=== PATIENT | male | born 1990 | race Hispanic/Latino ===

== ENCOUNTER 2021-06-08 22:07 | Emergency (ER) | payer SELFPAY ==
[~2021-06-08] VITALS: Ht 172.7 cm; Wt 122.5 kg
[2021-06-09] MEDS ORDERED: IBUPROFEN 400 MG TAB ONE (00:44)
[2021-06-09] MEDS ORDERED: AZITHROMYCIN 500MG/NS 250 ML 250 ML IV ONE (01:00)
[2021-06-09] MEDS ORDERED: DEXAMETHASONE SOD PHOS 10 MG/1 ML VIAL IV ONE (01:00)
[2021-06-09] MEDS ORDERED: ALBUTEROL SULFATE HFA 8GM INHALATION AEROSOL INH PRN (01:00)
[2021-06-09] MEDS ORDERED: CEFTRIAXONE 1 GM in SODIUM CHLORIDE 0.9% 50ML 50 ML IV ONE (01:15)
[2021-06-09] MEDS ORDERED: SODIUM CHLORIDE 0.9% 500ML 500 ML IV ONE (01:15)
[2021-06-09] MEDS ORDERED: SODIUM CHLORIDE 0.9% 500ML 500 ML ONE ×2 (01:35→03:10)
[2021-06-09] MEDS ORDERED: DEXAMETHASONE SOD PHOS INJ 4 MG/ML VIAL ONE (01:35)
[2021-06-09] MEDS ORDERED: CEFTRIAXONE 1 GM VIAL ONE (01:36)
[2021-06-09] MEDS ORDERED: IBUPROFEN 400 MG TAB PO ONE (02:15)
[2021-06-09] MEDS ORDERED: ALBUTEROL/IPRATROPIUM 3 ML NEB ONE (03:09)
[2021-06-09] MEDS ORDERED: ACETAMINOPHEN 325 MG TAB ONE (03:36)
[2021-06-09] MEDS ORDERED: ACETAMINOPHEN 325 MG TAB PO ONE (03:45)
[2021-06-09] MEDS ORDERED: SODIUM CHLORIDE 0.9% 1000ML 1,000 ML IV SCH (03:45)
[2021-06-09 04:13] VITALS: BP 112/63
== END 2021-06-09 05:03 | disposition short-term general hospital (02) ==
LOC: FSED 06-09 00:46
DX: U07.1 COVID-19 (principal); J12.82 Pneumonia due to coronavirus disease 2019; R09.02 Hypoxemia; J98.01 Acute bronchospasm; E87.1 Hypo-osmolality and hyponatremia; E66.9 Obesity, unspecified; Z68.41 Body mass index [BMI] 40.0-44.9, adult
CPT/HCPCS: 71045; 80053; 81003; 82553; 83605; 83880; 84484; 85025; 87040; 99284; J0456 ×2; J0696; J1100 ×2; J7040